=== PATIENT | male | born 1945 | race Asian ===

== ENCOUNTER 2017-04-04 05:54 | Day surgery (SDC) | payer MEDICARE, OTHER ==
[~2017-04-04] VITALS: Ht 175.3 cm; Wt 66.4 kg
[~2017-04-04 05:54] MED LIST: GLIP10 PO; METF500T4 PO; RINGERS SOLUTION,LACTATED 500 ML IV ONE
[2017-04-04] MEDS ORDERED: TETRACAINE HCL/PF 0.5% 4 ML OPHTHALMIC SOLUTION ONE (06:09)
[2017-04-04] MEDS ORDERED: CYCLOPENTOLATE HCL 1% 2 ML OPHTHALMIC SOLUTION ONE (06:09)
[2017-04-04] MEDS ORDERED: TROPICAMIDE 1% 2 ML OPHTHALMIC SOLUTION ONE (06:09)
[2017-04-04] MEDS ORDERED: FLURBIPROFEN SODIUM 0.03% 2.5 ML OPHTHALMIC SOLUTION ONE (06:09)
[2017-04-04] MEDS ORDERED: PHENYLEPHRINE HCL 2.5% 2 ML OPHTHALMIC SOLUTION ONE (06:09)
[2017-04-04] MEDS ORDERED: RINGERS SOLUTION,LACTATED 500 ML IV ONE (06:10)
[2017-04-04] MEDS: TROPICAMIDE 1% 2 ML OPHTHALMIC SOLUTION OD SCH ×3 (06:43→06:57)
[2017-04-04] MEDS: CYCLOPENTOLATE HCL 1% 2 ML OPHTHALMIC SOLUTION OD SCH ×3 (06:43→06:58)
[2017-04-04] MEDS: OFLOXACIN 0.3% 5 ML OPHTHALMIC SOLUTION OD SCH ×3 (06:43→06:57)
[2017-04-04] MEDS: PHENYLEPHRINE HCL 2.5% 2 ML OPHTHALMIC SOLUTION OD SCH ×3 (06:43→06:58)
[2017-04-04] MEDS: FLURBIPROFEN SODIUM 0.03% 2.5 ML OPHTHALMIC SOLUTION OD SCH ×3 (06:44→06:57)
[2017-04-04 06:56] LABS: GLUCOSE,POINT OF CARE 167 MG/DL (70-110)
[2017-04-04] MEDS ORDERED: TETRACAINE HCL/PF 0.5% 4 ML OPHTHALMIC SOLUTION OD ONE (07:00)
[2017-04-04] MEDS ORDERED: ACETAMINOPHEN 325 MG TABLET PO PRN (07:00)
[2017-04-04] MEDS ORDERED: FentaNYL CITRATE-PF 100 MCG/2 ML VIAL IVP ONE (23:56)
[2017-04-04] MEDS ORDERED: MIDAZOLAM HCL 2 MG/2 ML VIAL IVP ONE (23:56)
== END 2017-04-04 08:35 | disposition home or self-care (01) ==
LOC: SURGERY 05:54
PROVIDERS: ATTEND Ophthalmology
DX: E11.36 Type 2 diabetes mellitus with diabetic cataract (principal); H25.11 Age-related nuclear cataract, right eye; Z98.890 Other specified postprocedural states
CPT/HCPCS: 66984; 82962; 93005; C1780; J2250; J3010; J7120